=== PATIENT | female | born 1965 | race Caucasian/White ===

== ENCOUNTER → 2018-08-17 | Outpatient (CLI) | payer BC, SELFPAY ==
[2018-08-17 16:14] LABS: Estradiol 17.8 pg/mL
[2018-08-18 14:25] LABS: Progesterone Level 0.97 ng/mL (See Comment)
== END | disposition home or self-care (01) ==
LOC: LAB 12:49
PROVIDERS: Referring Provider Obstetrics & Gynecology; Visit Provider Obstetrics & Gynecology
DX: Z78.0 Asymptomatic menopausal state (principal)
CPT/HCPCS: 36415; 82670; 84144